=== PATIENT | female | born 1950 | race Caucasian/White ===

== ENCOUNTER 2019-03-18 05:14 | Day surgery (SDC) ==
--- NOTE | 2019-03-15 14:14 | EKG Report ---
Test Performed on : 03/15/2019 2:10:20 PM Test Reason : pat Blood Pressure : / mmHG Vent. Rate : 077 BPM Atrial Rate : 077 BPM P-R Int : 122 ms QRS Dur : 072 ms QT Int : 386 ms P-R-T Axes : 055 068 072 degrees QTc Int : 436 ms Normal sinus rhythm. Normal ECG When compared with ECG of 05-JUN-2016 06:34, No significant change was found Confirmed by Manuel PRINGLE, Jovani Turpin ([id number]) on 03/16/2019 9:06:30 AM
[2019-03-15 14:29] LABS: HEMATOCRIT 42.8 % (37.0-47.0); HEMOGLOBIN 14.5 g/dL (12.0-16.0); MCH 32.9 PG (27-31); MCHC 33.9 g/dL (33-37); MCV 97.1 FL (81-99); RBC 4.41 XMIL (4.2-5.4); RDW 13.4 % (11.5-14.5); WBC 8.61 X1000 (4.8-10.8)
[2019-03-15 15:14] LABS: AGAP 7; BUN 9 mg/dL (8-22); CALCIUM 8.9 mg/dL (8.8-10.2); CHLORIDE 99 mmol/L (98-107); COSMO 268; CREATININE 0.7 mg/dL (0.5-0.9); ESTIMATED GFR > 60; GLUCOSE 91 mg/dL (70-104); POTASSIUM 4.2 mmol/L (3.5-5.1); SODIUM 135 mmol/L (136-145); TCO2 29 mmol/L (25-35)
[2019-03-18] MEDS ORDERED: LR 1,000 ML ONE (05:39)
[2019-03-18] MEDS ORDERED: KEFZOL 1 GM/D5W 1 GM/50 ML IVPB ONE (05:39)
[2019-03-18] MEDS ORDERED: DIPRIVAN 1% ONE (06:10)
[2019-03-18] MEDS ORDERED: FENTANYL ONE (06:11)
[2019-03-18] MEDS ORDERED: ZOFRAN ONE (06:14)
[2019-03-18] MEDS ORDERED: NORCURON ONE (06:14)
[2019-03-18] MEDS ORDERED: DECADRON ONE (06:14)
[2019-03-18] MEDS ORDERED: SODIUM CHLORIDE 0.9% 10 ML ONE (06:14)
[2019-03-18] MEDS ORDERED: QUELICIN (DOSE) ONE (06:14)
[2019-03-18] MEDS ORDERED: XYLOCAINE-MPF 2% ONE (06:14)
[2019-03-18] MEDS ORDERED: SENSORCAINE-MPF 0.5%/EPI 1:200,000 ONE (06:33)
[2019-03-18] MEDS ORDERED: ROBINUL ONE ×2 (07:20→07:56)
[2019-03-18] MEDS ORDERED: EPHEDRINE ONE (07:21)
[2019-03-18] MEDS ORDERED: NEOSTIGMINE ONE (07:56)
[2019-03-18] MEDS: DILAUDID ONE ×3 (09:00→16:09)
[2019-03-18] MEDS: NORCO-10 ONE ×2 (09:15→16:09)
--- NOTE | 2019-03-18 12:35 | Diag Imaging Result Doc PS360 ---
EXAM: CHEST-PORTABLE HISTORY: hypoxia TECHNIQUE: Portable chest single view COMPARISON: 09/08/2011 FINDINGS: The lungs are well expanded. The heart is not enlarged. The vessels are not distended. Minimal increased markings in the lower lungs. No effusion identified. IMPRESSION: Basilar atelectasis versus tiny infiltrates. Electronically signed by Maximo Catalan 03/18/2019 12:33 PM
--- NOTE | 2019-03-18 13:03 | OPERATIVE NOTE ---
PROCEDURE DATE: 03/18/2019 PREOPERATIVE DIAGNOSIS: Incisional hernia and diastasis recti. POSTOPERATIVE DIAGNOSIS: Incisional hernia and diastasis recti. PROCEDURE: Robotic incisional hernia repair. SURGEON: Darrian Ramos MD. ANESTHESIA: General. ESTIMATED BLOOD LOSS: 3 mL. COMPLICATIONS: None apparent. SPECIMENS: None. FINDINGS: She had an incisional hernia in her mid abdomen with some surrounding diastasis. The hernia measured approximately 10 cm across and 6 cm wide. It was repaired with an underlay mesh patch that was 15 x 10 cm. TECHNIQUE: She was brought to the operating room. General anesthesia was induced. She was supine and her left side was bumped up. After she was prepped and draped, 0.5% Marcaine with epinephrine was used to anesthetize our incisions. An 8 mm incision was made in the left upper quadrant. The peritoneal cavity was then accessed under direct vision with the [employer] Her[employer] device. Pneumoperitoneum was established. The camera was inserted. There was no evidence of injury to underlying structures. An 11 mm incision and port were placed in the left lateral abdomen, and another 8 mm incision port was placed in the left lower quadrant. The robot was brought in. The 5 mm incision port in the left upper quadrant was changed for an 8 mm port. The robot was then docked to the ports. The instruments were inserted and I went to the console. I then dissected the peritoneum away from the fascia at the edges, and reduced the peritoneum out of the fascial defect. I measured the fascial defect, and it was my opinion that this fascia would not come together primarily because the diastasis and increased tension. I elected to go ahead and repair it with an underlay mesh patch. I selected one of appropriate size. It was a ventral light echo type mesh. It was brought into the abdominal cavity. The scrub assistant manager retail passed a [employer] device through the midportion of the fascial defect, and I handed the suture to it. She pulled the suture taut bringing the mesh up to the abdominal wall. It was centered over the fascial defect with good overlap of at least 2 cm circumferentially. I then proceeded to suture the mesh to the fascia with a running 3-0 absorbable V-Loc suture. I used two sutures working in opposite directions and tying them together from the opposite side that I started. There was good approximation of the mesh to the fascia without any significant gaps. I then removed the needles, and rejoined the sterile field. The robot was undocked and removed. I closed the left lateral port site fascia with a 0 Vicryl using the Jose-Raj device under direct vision. The abdomen was desufflated. The ports were removed. The skin was closed with 4-0 subcuticular Monocryl and Steri-Strips. There were no apparent complications.. cc: Darrian Ramos MD
[2019-03-18] MEDS: NORCO-10 PO PRN ×3 (13:27→20:54)
[2019-03-18] MEDS ORDERED: NORCO-10 ONE (13:32)
[2019-03-18] MEDS: VENTOLIN HFA INH SCH (19:35)
[2019-03-18] MEDS: PERIDEX MT SCH (20:46)
[2019-03-18] MEDS ORDERED: DESYREL PO SCH (21:00)
[2019-03-18] MEDS ORDERED: BUSPAR PO SCH (21:00)
[2019-03-19] MEDS: NORCO-10 PO PRN ×3 (01:39→09:41)
[2019-03-19] MEDS ORDERED: PROTONIX PO SCH (07:00)
[2019-03-19 07:21] VITALS: BP 157/63
[2019-03-19] MEDS ORDERED: BREO ELLIPTA 200/25 MCG INH INH SCH (07:30)
[2019-03-19] MEDS: VENTOLIN HFA INH SCH (08:20)
[2019-03-19] MEDS ORDERED: BUSPAR PO SCH (09:00)
[2019-03-19] MEDS ORDERED: PROZAC PO SCH (09:00)
[2019-03-19] MEDS: PERIDEX MT SCH (09:41)
--- NOTE | 2019-03-19 14:56 | GENERAL SURGERY PROGRESS NOTE ---
DATE: 03/19/2019 SUBJECTIVE: The patient is doing well this morning. She was kept overnight for observation due to some hypoxia postoperatively. She denies chest pain or shortness of breath, nausea, vomiting, or severe abdominal pain. She is able to ambulate, tolerate p.o. and void on her own. OBJECTIVE: Vital signs: She is afebrile, pulse 66, respirations 16, blood pressure 157/63, O2 saturation 93% on room air. Urine output 1350 mL. General: She is awake, alert, oriented x4. No acute distress. Respiratory: Bilateral breath sounds clear to auscultation bilaterally. No increased work of breathing. Gastrointestinal: Soft nondistended, appropriately tender. Incisions are clean, dry, and intact. IMAGING: A chest x-ray yesterday afternoon showed some basilar atelectasis versus tiny infiltrates. No effusion identified. The vessels were not distended. ASSESSMENT AND PLAN: A 69-year-old female status post robotic ventral hernia repair. She was watched overnight for observation due to hypoxia. This appears to have resolved. She does have chronic obstructive pulmonary disease . She looks stable. She has and will be discharged home today. Instructions were given. She will follow up with me in 2 weeks. cc: Darrian Ramos MD
== END 2019-03-19 11:31 | disposition home or self-care (01) ==
LOC: 4N 05:14 → PAT 05:14
PROVIDERS: ATTEND Surgery
CPT/HCPCS: 71010; 71045; 80048; 85027; 93005; 93010; 94640; 94761; 94799; A9270; C1781; J0330; J0690; J1100; J1170; J2405; J3010; J7120; S2900

== ENCOUNTER 2019-10-25 04:31 | Inpatient (IN) ==
[2019-10-21 10:32] LABS: HEMATOCRIT 43.5 % (37.0-47.0); HEMOGLOBIN 14.1 g/dL (12.0-16.0); MCH 32.3 PG (27-31); MCHC 32.4 g/dL (33-37); MCV 99.8 FL (81-99); RBC 4.36 XMIL (4.2-5.4); RDW 13.6 % (11.5-14.5); WBC 9.38 X1000 (4.8-10.8)
--- NOTE | 2019-10-21 10:34 | EKG Report ---
Test Performed on : 10/21/2019 10:01:17 AM Test Reason : PAT Blood Pressure : / mmHG Vent. Rate : 071 BPM Atrial Rate : 071 BPM P-R Int : 136 ms QRS Dur : 072 ms QT Int : 426 ms P-R-T Axes : 072 064 070 degrees QTc Int : 462 ms Normal sinus rhythm. with sinus arrhythmia. T wave abnormality, consider anterior ischemia Abnormal ECG When compared with ECG of 15-MAR-2019 14:10, No significant change was found Confirmed by Ezio PRINGLE, Carlos ([id number]) on 10/22/2019 10:39:18 AM
[2019-10-21 11:04] LABS: AGAP 12; BUN 12 mg/dL (8-22); CALCIUM 9.5 mg/dL (8.8-10.2); CHLORIDE 100 mmol/L (98-107); COSMO 279; CREATININE 0.8 mg/dL (0.5-0.9); ESTIMATED GFR > 60; GLUCOSE 121 mg/dL (70-104); POTASSIUM 4.8 mmol/L (3.5-5.1); SODIUM 139 mmol/L (136-145); TCO2 27 mmol/L (25-35)
[2019-10-25] MEDS ORDERED: ROBINUL ONE ×2 (08:22→09:38)
[2019-10-25] MEDS ORDERED: KEFZOL 1 GM/D5W 1 GM/50 ML IVPB ONE (08:23)
[2019-10-25] MEDS ORDERED: LR 1,000 ML ONE (08:23)
[2019-10-25] MEDS ORDERED: DUONEB (A & A) ONE (08:28)
[2019-10-25] MEDS ORDERED: HEPARIN ONE ×2 (09:10)
[2019-10-25] MEDS ORDERED: NS 3,000 ML ONE (09:11)
[2019-10-25] MEDS ORDERED: KEFZOL ONE (09:31)
[2019-10-25] MEDS ORDERED: SENSORCAINE-MPF 0.5%/EPI 1:200,000 ONE (09:37)
[2019-10-25] MEDS ORDERED: NEOSTIGMINE ONE ×2 (09:38→10:42)
[2019-10-25] MEDS ORDERED: STERILE WATER INJ. ONE (09:38)
[2019-10-25] MEDS ORDERED: ZOFRAN ONE (09:38)
[2019-10-25] MEDS ORDERED: XYLOCAINE-MPF 2% ONE (09:38)
[2019-10-25] MEDS ORDERED: QUELICIN (DOSE) ONE (09:38)
[2019-10-25] MEDS ORDERED: DECADRON ONE (09:38)
[2019-10-25] MEDS ORDERED: NEO-SYNEPHRINE ONE ×2 (09:38→10:24)
[2019-10-25] MEDS ORDERED: AMIDATE ONE (09:38)
[2019-10-25] MEDS ORDERED: NORCURON ONE (09:38)
[2019-10-25] MEDS ORDERED: OFIRMEV 1000 MG/ISOTONIC SOLN 1,000 MG/100 ML BOTTLE ONE (09:38)
[2019-10-25] MEDS ORDERED: FENTANYL ONE (10:09)
[2019-10-25] MEDS ORDERED: HEPARIN (DOSE) ONE (10:27)
[2019-10-25] MEDS ORDERED: BRIDION ONE (10:55)
[2019-10-25] MEDS ORDERED: NS 1,000 ML ONE (11:13)
[2019-10-25 11:25] LABS: URINE SOURCE CATH
--- NOTE | 2019-10-25 11:28 | OPERATIVE NOTE ---
PROCEDURE DATE: 10/25/2019 PROCEDURES PERFORMED: 1. Open left common iliac balloon angioplasty and stent. 2. Femoral-femoral bypass. SURGEON: Bud Palomo M.D. BLOCK BOLTER MULE OPERATOR: Xavi August RN, and LUCY Escalera. PREOPERATIVE DIAGNOSIS: Intermittent claudication, right worse than left. 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 DESCRIPTION OF PROCEDURE: Satisfactory general endotracheal anesthesia. The abdomen and groins were prepped and draped in a sterile fashion. We made a vertical incision in the left groin, dissected down to the common femoral. We surrounded with an umbilical tape. The branch vessels were surrounded with vessel loops, both the superficial femoral and the deep femoral. We placed an antibiotic, that is a Kefzol-impregnated sponge. I turned my attention to the right groin due to the same thing, and identified the common femoral artery, surrounded it proximally with umbilical tape, and distally with a large vessel loop. We then made a subcutaneous tunnel using the DOSICK tunneler, and passed an umbilical tape. Then, 5000 units of heparin were given. We then punctured the left common femoral, and passed a wire, followed by a 6-Pakistani sheath. We then shot a retrograde arteriogram, and this showed a significant left common iliac stenosis. I chose a 7 x 4 balloon, and after passing our Glidewire up, we then passed our balloon across the stenosis. It was a 7 mm x 4 cm balloon. We then inflated it to nominal pressures at 30 seconds. We then shot a completion arteriogram, and this showed some dissection there, so I chose iCast, that is a covered stent. We did not have a 7 so I chose an 8 x 40 mm, and then placed it across the area of the stenosis, where the dissection was, and deployed it. A retrograde arteriogram then showed complete resolution of the dissection, good flow through the artery, good sizing actually of the artery as we blew the balloon up to just nominal pressure to deploy the covered stent. I did fail to mention that we had to switch from a 6 to a 7 sheath in order to pass the stent up. We then passed an 8 Hemashield Gold graft using the DOSICK tunneler across the suprapubic area, so we were going to use an 8 mm graft. We then removed our sheath after occluding flow in the common femoral with a DeBakey clamp, and in the vessel loops were used distally. The hole that we had made for the sheath, we extended proximally and a little bit distally for our arteriotomy. We then used a 5-0 Prolene stitch to construct the anastomosis between the Hemashield collagen-impregnated graft and the left common femoral artery. Upon completion of that, we clamped off the graft, and then allowed flow in the picayune artery. A couple of extra stitches were used at the heel to achieve complete hemostasis. Some Ultrafoam was placed around the anastomosis. An antibiotic sponge was placed. We then turned our attention to the right groin. The graft was placed on the appropriate amount of tension. We then occluded flow in the right common femoral, and incised it with an 11 blade, and extended it with the Lopez scissors. The arteriotomy then matched the graft size, and we then cut the graft to match the arteriotomy, and we did not place the graft under any extreme tension, but there was enough to prevent redundancy. We then constructed this anastomosis again with a 5-0 Prolene running stitch. Near the completion, we allowed flow in the picayune artery, and flushed the graft. It was excellent antegrade flow. We then finished the anastomosis. Flow was established. One extra stitch was used at the toe to achieve satisfactory hemostasis. Good flow was noted within the graft into the picayune arteries. We irrigated this wound with a Kefzol-impregnated saline as well. We then closed both groins in 2 layers using 2-0 and 3-0 Polysorb stitches. We then closed the skin with 4-0 Polysorb subcuticular stitch. Sterile island dressings were applied. She tolerated it well. Estimated blood loss was 130 mL. We used 41 mL of contrast. She was sent to the recovery room in stable condition. cc: Bud Palomo MD
[2019-10-25 11:32] LABS: BILIRUBIN URINE NEGATIVE (NEGATIVE); BLOOD URINE SMALL (NEGATIVE); COLOR YELLOW; GLUCOSE URINE NEGATIVE (NEGATIVE); KETONE URINE NEGATIVE (NEGATIVE); LEUKOCYTES URINE NEGATIVE (NEGATIVE); NITRITE URINE NEGATIVE (NEGATIVE); PH URINE 5.5; PROTEIN URINE NEGATIVE (NEGATIVE); SP GRAVITY URINE 1.006; TURBIDITY URINE CLEAR (CLEAR); UROBILINOGEN URINE NORMAL (NORMAL)
[2019-10-25 11:33] LABS: UR EPITHELIAL CELLS <10 /HPF (<10); URINE BACTERIA NEGATIVE /HPF; URINE RBC <10 /HPF (<10); URINE WBC <10 /HPF (<10)
[2019-10-25] MEDS ORDERED: ALBUMIN 25% IV ONE (11:45)
[2019-10-25] MEDS ORDERED: NEO-SYNEPHRINE 50 MG in NS 250 ML IV SCH (12:00)
[2019-10-25] MEDS: DILAUDID ONE ×2 (12:26→12:29)
[2019-10-25 12:29] LABS: HEMATOCRIT 35.9 % (37.0-47.0); HEMOGLOBIN 11.7 g/dL (12.0-16.0)
--- NOTE | 2019-10-25 12:44 | EKG Report ---
Test Performed on : 10/25/2019 12:14:31 PM Test Reason : hypotension Blood Pressure : / mmHG Vent. Rate : 077 BPM Atrial Rate : 077 BPM P-R Int : 142 ms QRS Dur : 076 ms QT Int : 436 ms P-R-T Axes : 041 054 059 degrees QTc Int : 493 ms Normal sinus rhythm. Prolonged QT Abnormal ECG When compared with ECG of 21-OCT-2019 10:01, No significant change was found Confirmed by Ezio PRINGLE, Carlos ([id number]) on 10/25/2019 3:54:00 PM
[2019-10-25] MEDS: NS 1,000 ML IV SCH ×2 (14:35→21:05)
[2019-10-25] MEDS ORDERED: NORCO-10 PO PRN (14:36)
[2019-10-25] MEDS ORDERED: ZOFRAN IV PRN (14:36)
[2019-10-25] MEDS: KEFZOL 1 GM/D5W 1 GM/50 ML IVPB IV SCH (17:20)
[2019-10-25] MEDS ORDERED: ATIVAN IV PRN (17:59)
[2019-10-25] MEDS: NICODERM PATCH TD SCH (18:28)
[2019-10-25] MEDS: DILAUDID IV PRN (18:29)
[2019-10-25] MEDS: VENTOLIN HFA INH SCH (19:16)
[2019-10-25] MEDS ORDERED: DESYREL PO SCH (21:00)
[2019-10-26] MEDS: NS 1,000 ML IV SCH ×2 (00:54→07:44)
[2019-10-26] MEDS: KEFZOL 1 GM/D5W 1 GM/50 ML IVPB IV SCH (00:56)
[2019-10-26] MEDS: DILAUDID IV PRN ×3 (04:12→12:26)
[2019-10-26 05:53] LABS: AGAP 9; BUN 7 mg/dL (8-22); CHLORIDE 107 mmol/L (98-107); COSMO 285; CREATININE 0.6 mg/dL (0.5-0.9); ESTIMATED GFR > 60; GLUCOSE 96 mg/dL (70-104); POTASSIUM 4.3 mmol/L (3.5-5.1); SODIUM 144 mmol/L (136-145); TCO2 28 mmol/L (25-35)
[2019-10-26 06:06] LABS: BASO# 0.01 X1000 (0.0-0.2); BASO% 0.1 % (0.0-0.8); EOS# 0.04 X1000 (0.0-0.7); EOS% 0.5 % (0.0-10.0); HEMATOCRIT 32.3 % (37.0-47.0); HEMOGLOBIN 10.4 g/dL (12.0-16.0); LYMPH# 2.78 X1000 (1.2-3.4); LYMPH% 31.5 % (20.5-51.1); MCH 32.6 PG (27-31); MCHC 32.2 g/dL (33-37); MCV 101.3 FL (81-99); MONO% 10.2 % (1.7-9.3); MPV 9.6 FL (7.4-10.4); NEUT# 5.09 X1000 (1.4-6.5); NEUT% 57.7 % (42.2-75.2); PLT 212 X1000 (130-400); RBC 3.19 XMIL (4.2-5.4); RDW 13.3 % (11.5-14.5); WBC 8.82 X1000 (4.8-10.8)
[2019-10-26] MEDS ORDERED: PROTONIX PO SCH (07:00)
[2019-10-26] MEDS ORDERED: NON-FORMULARY BULK MED INH SCH (07:30)
[2019-10-26] MEDS: NICODERM PATCH TD SCH (08:27)
[2019-10-26] MEDS: VENTOLIN HFA INH SCH (08:59)
[2019-10-26] MEDS ORDERED: PROZAC PO SCH (09:00)
[2019-10-26] MEDS ORDERED: NS 1,000 ML IV SCH (09:22)
--- NOTE | 2019-10-26 12:15 | GENERAL SURGERY PROGRESS NOTE ---
DATE: 10/26/2019 Ms. Putnam is doing well. She has been off Jayjay since 1 a.m. Her blood pressure is 150/69. Heart rate is 76. Her feet are warm with normal posterior tibial pulses bilaterally. Bandage is dry. Hemoglobin today 10.4, hematocrit 32. BUN 7, creatinine 0.6. The plan is to transfer to a regular room and possibly discharge later today. cc: Bud Palomo MD
[2019-10-26 15:28] VITALS: BP 133/69
== END 2019-10-26 15:50 | disposition home health service (06) | DRG 253 ==
LOC: SURHOLD 04:31 → 4N 10:27 → EDSTATUS 11:00 → ICU 11:58
PROVIDERS: ADMIT Surgery; ATTEND Surgery